=== PATIENT | female | born 1985 | race Caucasian/White ===

== ENCOUNTER 2017-12-20 00:51 | Emergency (ER) | payer SELFPAY ==
[~2017-12-20] VITALS: Ht 162.6 cm; Wt 79.4 kg
[2017-12-20 00:55] VITALS: BP_SYST 162
--- NOTE | 2017-12-20 01:09 | NUR ---
Placed in room 1 . Placed on school bus monitor, blood pressure machine and pulse oximeter. To gown for exam. Side rails up. Report given by FLEX Bey to FLEX Harper.
--- NOTE | 2017-12-20 01:10 | NUR ---
ER MD Nicole at bedside for medical evaluation.
--- NOTE | 2017-12-20 01:10 | NUR ---
Patient AOx4, ambulatory, presents to ER with complaint of chest pain with nausea and vomiting. Patient states she drank alcohol yesterday causing the nausea and vomiting. Patient states no medical hx. VSS stable. Will continue to monitor.
[2017-12-20] MEDS ORDERED: ASPIRIN 325 MG TABLET PO ONE (01:15)
[2017-12-20] MEDS ORDERED: NITROGLYCERIN 0.4 MG TAB.SUBL SL ONE (01:15)
[2017-12-20 01:22] LABS: BASOPHILS % (AUTO) 0.4 % (0.0-2.0); EOSINOPHILS % (AUTO) 0.7 % (0.0-4.0); HEMATOCRIT 43.5 % (36-48); HEMOGLOBIN 14.6 g/dL (12.0-16.0); LYMPHOCYTES # (AUTO) 2.1 K/uL (1.0-5.5); LYMPHOCYTES % (AUTO) 41.2 % (20.5-51.5); MEAN CORPUSCULAR HEMOGLOBIN 33 pg (27-31); MEAN CORPUSCULAR HGB CONC 34 % (32-36); MEAN CORPUSCULAR VOLUME 99 fL (79.0-98.0); MONOCYTES # (AUTO) 0.4 K/uL (0.0-1.0); MONOCYTES % (AUTO) 8.5 % (1.7-9.3); NEUTROPHILS # (AUTO) 2.6 K/uL (1.8-7.7); NEUTROPHILS % (AUTO) 49.2 % (40.0-70.0); PLATELET COUNT (AUTO) 148 K/uL (130-430); RED BLOOD CELL COUNT(AUTO) 4.37 MIL/uL (4.2-6.2); RED CELL DISTRIBUTION WIDTH 16.1 % (9.0-15.0); WHITE BLOOD COUNT (AUTO) 5.1 K/uL (4.8-10.8)
[2017-12-20 01:37] LABS: CALCIUM 10.3 mg/dL (8.4-11.0); CREATININE 0.7 mg/dL (0.55-1.30); POTASSIUM 3.6 mmol/L (3.5-5.1)
[2017-12-20 01:42] LABS: ALBUMIN 3.9 g/dL (3.4-4.8); TOTAL BILIRUBIN 0.7 mg/dL (0.0-1.0)
--- NOTE | 2017-12-20 01:55 | NUR ---
Patient states relief of chest pain after one dose of nitroglycerin. Will continue to monitor.
[2017-12-20 02:08] LABS: CKMB RELATIVE INDEX 0.3 (0.0-2.9); CREATINE KINASE MB 1.1 ng/mL (0-3.6)
[2017-12-20 02:20] LABS: BILIRUBIN,URINE NEGATIVE (NEGATIVE); BLOOD, URINE NEGATIVE (NEGATIVE); CLARITY/URINE CLEAR (CLEAR); COLOR,URINE YELLOW (YELLOW); GLUCOSE,URINE NEGATIVE (NEGATIVE); KETONES,URINE TRACE (NEGATIVE); LEUKOCYTE ESTERASE ,URINE NEGATIVE (NEGATIVE); NITRITE, URINE NEGATIVE (NEGATIVE); PROTEIN URINE TRACE (NEGATIVE); UROBILINOGEN,URINE 0.2 (0.2-1.0)
[2017-12-20 02:22] LABS: BACTERIA,URINE FEW /HPF (None Seen); RBC,URINE 0-3 /HPF (0-3); WBC,URINE 0-3 /HPF (0-3)
[2017-12-20] MEDS ORDERED: NACL 0.9% 1,000 ML IV ONE (04:00)
--- NOTE | 2017-12-20 04:15 | NUR ---
Patient does not wish to proceed with medical care recommended by Dr. Nicole. Patient given information related to possible complications, up to and including , which could occur as a result of leaving hospital at this time. Patient verbalizes understanding of risks involved leaving against medical advice. Patient has signed AMA form.
--- NOTE | 2017-12-20 06:25 | NUR ---
Note [email or web address] in EDM - 12/20/17 at 0702 by [email or web address] Patient does not wish to proceed with medical care recommended by Dr. Nicole. Patient given information related to possible complications, up to and including , which could occur as a result of leaving hospital at this time. Patient verbalizes understanding of risks involved leaving against medical advice. Patient has signed AMA form.
== END 2017-12-20 04:15 | disposition left against medical advice (07) ==
LOC: SED 00:51
DX: E86.0 Dehydration (principal); R79.89 Other specified abnormal findings of blood chemistry; R07.89 Other chest pain; Z91.041 Radiographic dye allergy status
CPT/HCPCS: 36415; 71045; 80053; 81000-TC; 82550-TC; 82553-TC; 83880; 84484; 85025; 85379; 85610-TC; 85730-TC; 93005; 99285